=== PATIENT | male | born 1955 | race Caucasian/White ===

== ENCOUNTER 2018-09-05 22:39 | Emergency (ER) | payer OTHER, SELFPAY ==
[2018-09-05 22:40] VITALS: BP 150/79; PULSE 88; RESP 16; TEMP 36.8; O2SAT 95; BMI 33.4
--- NOTE | 2018-09-05 22:54 | ED.VISSUMM ---
- ER Visit Summary Date of Service: 09/05/18 Chief Complaint: Sinus congestion History of Present Illness: The patient is a 62 M who presents with sinus congestion that is been getting worse over the past 6 days. Patient states he has had sinus congestion since April. Patient states that he noted some black mold in his house recently. Patient states his sinus congestion is gotten worse since that time. Patient denies any fevers or chills. Patient admits to a pressure over the frontal and maxillary areas. Patient has been using Flonase and loratadine which was prescribed to him by an ear nose and throat physician. Patient states this has not been helping much. Patient denies any shortness of breath. Patient denies any difficulty swallowing. Physical Examination: Vital signs are stable. Patient is afebrile. Patient is in no acute distress. Nasal mucosa is mildly congested. There is no tenderness over the frontal or maxillary sinuses. Tympanic membranes are clear bilateral. Oropharynx shows some mild postnasal drainage. Neck is supple. Trachea is midline. There is no JVD or lymphadenopathy noted. Heart was regular rate and rhythm. Lungs are clear and equal bilaterally. Abdomen is soft and nontender. Cranial nerves II through XII are intact. There are no focal motor or sensory deficits noted. Emergency Department Course and Treatment: Patient was advised to continue the Flonase and loratadine. Patient was also given a prescription for Sudafed. Patient was instructed to follow-up with his primary care physician in 5 to 7 days. Patient understood and was agreeable with the plan. All questions were answered. Disposition: Discharge home Impression: Chronic sinusitis This note was generated with [employer] dictation software. It may contain incorrect words, spelling, and punctuation that were not noted in review of the chart prior to signing ED Disposition - Plan for ED Patient: Disposition: Home or Assisted Living Diagnosis: Chronic sinusitis Instructions: Chronic Sinusitis Prescriptions: Pseudoephedrine HCl [Sudafed 24-Hour] 240 mg PO DAILY PRN PRN #[id number] PRN Reason: Sinus Congestion Prescription Printed Referrals: Archie Emery MD [Primary Care Provider] - 3-5 Days
[2018-09-05 23:28] VITALS: BP 132/72; PULSE 87; RESP 16; O2SAT 94
== END 2018-09-05 23:30 | disposition home or self-care (01) ==
LOC: ED 22:59
PROVIDERS: Emergency Provider Emergency Medicine; Family Provider Family Medicine; PCP Family Medicine
DX: J32.1 Chronic frontal sinusitis (principal); J32.0 Chronic maxillary sinusitis; Z72.0 Tobacco use
CPT/HCPCS: 99283